=== PATIENT | male | born 1935 | race Caucasian/White ===

== ENCOUNTER 2021-06-29 17:01 | Observation (INO) | payer OTHER ==
[2021-06-29] MEDS ORDERED: guaiFENesin 200 MG/10 ML 10 ML UNIT-DOSE CUPS PO ONE (17:44)
[2021-06-29] MEDS ORDERED: IBUPROFEN 400 MG TABLET (FP) PO ONE (17:57)
[2021-06-29] MEDS ORDERED: FAMOTIDINE 20 MG TABLET PO ONE (18:19)
[2021-06-29] MEDS ORDERED: MAG HYDROX/AL HYDROX/SIMETH 30 ML UNIT-DOSE CUP PO ONE (18:20)
[2021-06-29] MEDS ORDERED: guaiFENesin 200 MG/10 ML 10 ML UNIT-DOSE CUPS ONE (18:24)
[2021-06-29] MEDS ORDERED: FAMOTIDINE 20 MG TABLET ONE (18:25)
[2021-06-29] MEDS ORDERED: MAG HYDROX/AL HYDROX/SIMETH 30 ML UNIT-DOSE CUP ONE (18:25)
[2021-06-29] MEDS: SODIUM CHLORIDE 2,177 ML IV ONE ×2 (18:30→18:47)
[2021-06-29 18:55] LABS: VENOUS BASE EXCESS -2.2 mmol/L (-2-2); VENOUS O2 SATURATION 86.6 % (70-80); VENOUS PCO2 33.7 mmHg (38-52); VENOUS PH 7.42 (7.310-7.410)
[2021-06-29 18:56] LABS: BASO % 0.4 % (0-2.0); EOS % 0.4 % (0-4.5); HEMATOCRIT 38.5 % (35.4-49); HEMOGLOBIN 13.4 GM/dL (11.7-16.9); MCH 30.8 pg (25.7-33.7); MCHC 34.8 g/dl (32.0-35.9); MEAN CELL VOLUME 88.6 fl (80-96); MEAN PLT VOLUME 7.4 fl (7.5-11.1); MONO % 15.3 % (3.8-10.2); NEUT % 57.9 % (42.8-82.8); PLATELET COUNT 179 10^3/uL (134-434); RBC 4.34 M/mm3 (4.00-5.60); RDW 13.7 % (11.9-15.9); WHITE BLOOD COUNT 11.8 K/mm3 (4.0-10.0)
[2021-06-29 18:57] LABS: PH,URINE 5.5 (5.0-8.0); URINE APPEARANCE CLOUDY; URINE BILIRUBIN NEGATIVE (NEGATIVE); URINE COLOR DK YELLOW; URINE GLUCOSE (UA) NEGATIVE (NEGATIVE); URINE KETONE NEGATIVE (NEGATIVE); URINE LEUK ESTERASE NEGATIVE (NEGATIVE); URINE NITRITE NEGATIVE (NEGATIVE); URINE PROTEIN TRACE (NEGATIVE)
[2021-06-29 19:07] LABS: INR 1.1 (0.83-1.09); PROTHROMBIN TIME (PATIENT) 12.9 SEC (9.7-13.0)
[2021-06-29 19:10] LABS: ACTIVATED PTT 31.1 SECONDS (25.2-36.5)
[2021-06-29] MEDS ORDERED: SODIUM CHLORIDE 0.9% 500 ML INFUS.BAG IV ONE (19:12)
[2021-06-29 19:19] LABS: CHLORIDE 102 mmol/L (98-107); SODIUM 134 mmol/L (136-145)
[2021-06-29 19:21] LABS: ALBUMIN 3.4 g/dl (3.4-5.0); ANION GAP 9 MMOL/L (8-16); CALCIUM 8.9 mg/dL (8.5-10.1); CO2 23 mmol/L (21-32)
[2021-06-29 19:22] LABS: BLOOD UREA NITROGEN 15.4 mg/dL (7-18); GLUCOSE,RANDOM 121 mg/dL (74-106)
[2021-06-29 19:24] LABS: SGPT/ALT 53 U/L (13-61)
[2021-06-29 19:25] LABS: CREATININE 0.8 mg/dL (0.55-1.3); SGOT/AST 46 U/L (15-37); TOT PROT 7.9 g/dl (6.4-8.2)
[2021-06-29 19:27] LABS: ALK PHOS 100 U/L (45-117); BILIRUBIN,TOTAL 0.9 mg/dL (0.2-1)
[2021-06-30] MEDS ORDERED: amLODIPine BESYLATE 5 MG TABLET (FP) PO SCH (00:44)
[2021-06-30 01:13] LABS: HEMATOCRIT 38.2 % (35.4-49); HEMOGLOBIN 13.2 GM/dL (11.7-16.9); MCH 30.7 pg (25.7-33.7); MCHC 34.6 g/dl (32.0-35.9); MEAN CELL VOLUME 88.7 fl (80-96); MEAN PLT VOLUME 7.5 fl (7.5-11.1); PLATELET COUNT 160 10^3/uL (134-434); RDW 14.2 % (11.9-15.9); WHITE BLOOD COUNT 10.2 K/mm3 (4.0-10.0)
[2021-06-30] MEDS ORDERED: AZITHROMYCIN IVPB 500 MG/250 ML BAG IVPB ONE ×2 (02:45→03:19)
[2021-06-30] MEDS ORDERED: PIPERACILLIN/TAZOB 3.375 GM 3.375 GM/50 ML BAG IVPB ONE ×2 (02:45→03:19)
[2021-06-30] MEDS ORDERED: ACETAMINOPHEN 325 MG TABLET (FP) PO PRN (02:53)
[2021-06-30] MEDS ORDERED: amLODIPine BESYLATE 5 MG TABLET (FP) ONE (03:19)
[2021-06-30 05:24] LABS: ANISOCYTOSIS 1+; MACROCYTOSIS 0; OVALOCYTE 1+; PLATELET ESTIMATE DECREASED; ROULEAU 2+
[2021-06-30 08:14] LABS: HEMATOCRIT 35.3 % (35.4-49); HEMOGLOBIN 12.4 GM/dL (11.7-16.9); MCH 31.1 pg (25.7-33.7); MCHC 35.2 g/dl (32.0-35.9); MEAN CELL VOLUME 88.3 fl (80-96); MEAN PLT VOLUME 7.6 fl (7.5-11.1); PLATELET COUNT 169 10^3/uL (134-434); RBC 3.99 M/mm3 (4.00-5.60); RDW 13.7 % (11.9-15.9); WHITE BLOOD COUNT 9.2 K/mm3 (4.0-10.0)
[2021-06-30 08:29] LABS: CALCIUM 8.3 mg/dL (8.5-10.1)
[2021-06-30 08:30] LABS: ALBUMIN 2.9 g/dl (3.4-5.0); BLOOD UREA NITROGEN 12.7 mg/dL (7-18)
[2021-06-30 08:32] LABS: CHOLESTEROL 128 mg/dL (50-200); CREATININE 0.7 mg/dL (0.55-1.3); TRIGLYCERIDES 210 mg/dL (0-150)
[2021-06-30 08:33] LABS: LDL CHOLESTEROL (ONLY SJRH) 73 mg/dL (5-100); PHOSPHOROUS 3.2 mg/dL (2.5-4.9)
[2021-06-30 08:34] LABS: BILIRUBIN,TOTAL 0.8 mg/dL (0.2-1); HDL CHOLESTEROL 22 mg/dL (40-60)
[2021-06-30 08:41] LABS: MAGNESIUM 2.5 mg/dL (1.8-2.4)
[2021-06-30 09:40] LABS: ANISOCYTOSIS 1+; MACROCYTOSIS 0; PLATELET ESTIMATE NORMAL
[2021-06-30] MEDS ORDERED: ENOXAPARIN NA (PORCINE) 40 MG/0.4 ML DISP.SYRIN SQ SCH (10:00)
[2021-06-30] MEDS ORDERED: LISINOPRIL 10 MG TABLET PO SCH (10:00)
[2021-06-30 13:09] VITALS: BMI 28.1
[2021-06-30 14:50] VITALS: BP 115/73; PULSE 120; TEMP 99
== END 2021-06-30 15:06 | disposition home or self-care (01) ==
LOC: JER 17:01 → JERBED 23:06 → J4S 06-30 05:49
PROVIDERS: ADMIT Internal Medicine; ATTEND Nurse Practitioner Acute Care
PROC: 3E023GC Introduction of Other Therapeutic Substance into Muscle, Percutaneous Approach (ICD-10-PCS; principal; 2021-06-29)
PROC: 3E03329 Introduction of Other Anti-infective into Peripheral Vein, Percutaneous Approach (ICD-10-PCS; 2021-06-29)
PROC: 3E0337Z Introduction of Electrolytic and Water Balance Substance into Peripheral Vein, Percutaneous Approach (ICD-10-PCS; 2021-06-29)
DX: R68.83 Chills (without fever) (principal); R53.1 Weakness; R05.3 Chronic cough; K57.90 Diverticulosis of intestine, part unspecified, without perforation or abscess without bleeding; R07.9 Chest pain, unspecified; I10 Essential (primary) hypertension; N40.0 Benign prostatic hyperplasia without lower urinary tract symptoms; Z29.9 Encounter for prophylactic measures, unspecified
CPT/HCPCS: 36415; 71045-TC-FY; 71260-TC; 74177-TC; 80053; 80061; 81003; 82550; 82553; 82803; 83036; 83605; 83735; 84100; 84443; 84484; 85025; 85610; 85730; 86308; 86850; 86900; 86901; 87040; 87086; 87804; 87807; 87899; 93005; 93010; 96365; 96368; 96372; 97116-GP; 97161-GP; 99285-25; C9803; G0378; Q9967; U0003; U0005